=== PATIENT | female | born 1965 | race Hispanic/Latino ===

== ENCOUNTER → 2017-07-13 | Outpatient (CLI) | payer BC | END | disposition home or self-care (01) | LOC: RAH 15:41 | PROVIDERS: ATTEND Internal Medicine Nephrology | DX: Z12.31 Encounter for screening mammogram for malignant neoplasm of breast (principal) | CPT/HCPCS: 77067 ==

== ENCOUNTER → 2018-01-03 | Outpatient (CLI) | payer OTHER ==
[~2018-01-03] MED LIST: CALC600T12 PO; CEPH500B PO; CHOL500050 PO; IBUP-2070 PO; TYL3 PO; [UNRECOGNIZED DRUG - OTHER] PO
== END | disposition home or self-care (01) ==
LOC: RAH 11-09 16:19
PROVIDERS: ATTEND Physical Medicine & Rehabilitation
DX: M54.12 Radiculopathy, cervical region (principal)
CPT/HCPCS: 72052

== ENCOUNTER → 2019-03-30 | Outpatient (CLI) | payer BC | END | disposition home or self-care (01) | LOC: RAH 15:13 | PROVIDERS: ATTEND Internal Medicine Nephrology | DX: Z12.31 Encounter for screening mammogram for malignant neoplasm of breast (principal); N63.10 Unspecified lump in the right breast, unspecified quadrant | CPT/HCPCS: 77067 ==

== ENCOUNTER → 2020-09-19 | Outpatient (CLI) | payer BC, OTHER ==
[~2020-09-19] MED LIST changes: +CALC-1125 PO; -CALC600T12 PO
== END | disposition home or self-care (01) ==
LOC: SHCH 11:07
PROVIDERS: ATTEND Internal Medicine Cardiovascular Disease
DX: R94.31 Abnormal electrocardiogram [ECG] [EKG] (principal); R07.9 Chest pain, unspecified
CPT/HCPCS: 93306; 93356

== ENCOUNTER → 2020-09-25 | Outpatient (CLI) | payer BC, OTHER ==
[~2020-09-25] VITALS: Ht 172.7 cm; Wt 92.1 kg
[~2020-09-25] MED LIST changes: +REGADENOSON 0.4 MG/5 ML PF SYG IVP SCH
== END | disposition home or self-care (01) ==
LOC: SHCH 09:32
PROVIDERS: ATTEND Internal Medicine Cardiovascular Disease
DX: R94.31 Abnormal electrocardiogram [ECG] [EKG] (principal); R07.9 Chest pain, unspecified
CPT/HCPCS: 78452; 93017; 96374; A9500 ×2; J2785

== ENCOUNTER 2023-06-04 21:05 | Inpatient (IN) | payer BC, OTHER ==
[~2023-06-04] VITALS: Ht 172.7 cm; Wt 89.0 kg
[~2023-06-04 21:05] MED LIST changes: -REGADENOSON 0.4 MG/5 ML PF SYG IVP SCH
[2023-06-04] MEDS: ONDANSETRON 4MG INJ IVP ONE (21:31)
[2023-06-04] MEDS: MORPHINE 4 MG SYG IVP ONE (21:32)
[2023-06-04] MEDS: 0.9%NACL 1000ML 1,000 ML IV ONE (21:32)
[2023-06-04 21:34] LABS: BASOPHILS # (AUTO) 0.04 K/uL (0.00-0.20); BASOPHILS % (AUTO) 0.3 % (0.0-5.0); EOSINOPHILS # (AUTO) 0.01 K/uL (0.00-0.70); EOSINOPHILS % (AUTO) 0.1 % (0.0-8.0); HEMATOCRIT 37.6 % (36-48); IMMATURE GRANULOCYTE ABSOLUTE 0.02 K/uL (0-1); LYMPHOCYTES # (AUTO) 2.2 K/uL (1.0-4.8); MEAN CORPUSCULAR HEMOGLOBIN 31.8 pg (27.0-33.0); MEAN CORPUSCULAR HGB CONC 34.6 g/dL (32.0-36.0); MEAN CORPUSCULAR VOLUME 91.9 fL (79-99); MONOCYTES # (AUTO) 0.4 K/uL (0.1-1.0); MONOCYTES % (AUTO) 3.6 % (3.0-13.0); NEUTROPHILS # (AUTO) 8.9 K/uL (1.8-7.7); NEUTROPHILS % (AUTO) 76.8 % (40.0-77.0); PLATELET COUNT (AUTO) 225 K/uL (130-400); RED BLOOD CELL COUNT(AUTO) 4.09 MIL/uL (4.00-5.50); RED CELL DISTRIBUTION WIDTH 12.3 % (11.0-15.5); WHITE BLOOD COUNT (AUTO) 11.6 K/uL (4.8-10.8)
[2023-06-04 21:35] LABS: SARS-CoV-2, RNA, NAAT NEGATIVE SARS CoV-2 (NEGATIVE)
[2023-06-04 21:36] LABS: INFLUENZA TYPE A Negative For Type A (NEGATIVE); INFLUENZA TYPE B Negative For Type B (NEGATIVE)
[2023-06-04 21:40] LABS: APPEARANCE,URINE CLEAR (CLEAR); BILIRUBIN,URINE NEGATIVE (NEGATIVE); COLOR,URINE YELLOW (YELLOW); GLUCOSE, URINE (UA) NEGATIVE (NEGATIVE); KETONES,URINE 15 mg/dL (NEGATIVE); LEUKOCYTE ESTERASE ,URINE NEGATIVE Leu/uL (NEGATIVE); NITRATE,URINE NEGATIVE (NEGATIVE); PH,URINE 7.5 (5.0-8.0); PROTEIN,URINE NEGATIVE (NEGATIVE); UROBILINOGEN,URINE 0.2 mg/dL (0.2-1.0)
[2023-06-04 21:43] LABS: ADD UA MICROSCOPIC NO; OCCULT BLOOD,URINE NEGATIVE (NEGATIVE)
[2023-06-04 21:51] LABS: POTASSIUM 3.7 mmol/L (3.5-5.1)
[2023-06-04 21:56] LABS: ALBUMIN 4.2 g/dL (3.5-5.0); BILIRUBIN,TOTAL 0.6 mg/dL (0.2-1.0); TOTAL PROTEIN, SERUM 8.9 g/dL (6.0-8.3)
[2023-06-04] MEDS: ZOSYN 3.375GM +NS 50ML IVPB ONE (22:01)
[2023-06-04] MEDS: KETOROLAC 30MG VIAL (30MG/ML) IVP ONE (22:25)
[2023-06-04] MEDS ORDERED: IOHEXOL-350 75 ML VIAL IV ONE (22:29)
[2023-06-05] VITALS (24 sets, daily range): BP systolic 95–151; BP diastolic 44–87; PULSE 66–92; RESP 15–22; O2SAT 98–100
[2023-06-05] MEDS ORDERED: ACETAMINOPHEN WITH CODEINE 1 TAB TAB PO PRN ×2
[2023-06-05] MEDS ORDERED: MORPHINE 2 MG SYG IV PRN
[2023-06-05] MEDS ORDERED: ACETAMINOPHEN 325 MG TAB PO PRN ×2
[2023-06-05 00:14] LABS: INR <= 0.93 (0.85-1.15); PROTHROMBIN TIME 10.5 SEC (9.6-11.6)
[2023-06-05 00:15] LABS: PARTIAL THROMBOPLASTIN TIME 28.5 SEC (26.3-35.5)
[2023-06-05] MEDS: 0.9%NACL 1000ML 1,000 ML IV SCH (01:04)
[2023-06-05] MEDS: KETOROLAC 15MG/ML VIAL (15MG/ML) IV PRN (01:32)
[2023-06-05] MEDS: ONDANSETRON 4MG INJ IV PRN (01:32)
[2023-06-05] MEDS: KETOROLAC 15MG/ML VIAL (15MG/ML) ONE (01:44)
[2023-06-05] MEDS: ZOSYN 3.375GM+NS 50ML 50 ML IV SCH (05:19)
[2023-06-05 05:56] LABS: BASOPHILS # (AUTO) 0.05 K/uL (0.00-0.20); BASOPHILS % (AUTO) 0.4 % (0.0-5.0); HEMATOCRIT 36.9 % (36-48); IMMATURE GRANULOCYTE ABSOLUTE 0.05 K/uL (0-1); LYMPHOCYTES # (AUTO) 1.5 K/uL (1.0-4.8); LYMPHOCYTES % (AUTO) 12.2 % (21.0-51.0); MEAN CORPUSCULAR HEMOGLOBIN 32.3 pg (27.0-33.0); MEAN CORPUSCULAR HGB CONC 34.1 g/dL (32.0-36.0); MEAN CORPUSCULAR VOLUME 94.6 fL (79-99); MONOCYTES # (AUTO) 0.9 K/uL (0.1-1.0); MONOCYTES % (AUTO) 7.4 % (3.0-13.0); NEUTROPHILS # (AUTO) 9.9 K/uL (1.8-7.7); NEUTROPHILS % (AUTO) 79.6 % (40.0-77.0); PLATELET COUNT (AUTO) 168 K/uL (130-400); RED CELL DISTRIBUTION WIDTH 12.3 % (11.0-15.5); WHITE BLOOD COUNT (AUTO) 12.5 K/uL (4.8-10.8)
[2023-06-05 06:13] LABS: INR <= 0.93 (0.85-1.15); PROTHROMBIN TIME 10.9 SEC (9.6-11.6)
[2023-06-05 06:15] LABS: PARTIAL THROMBOPLASTIN TIME 29.6 SEC (26.3-35.5)
[2023-06-05 06:31] LABS: ALBUMIN 3.5 g/dL (3.5-5.0); BILIRUBIN,TOTAL 0.8 mg/dL (0.2-1.0); CREATININE 0.8 mg/dL (0.5-1.0); POTASSIUM 3.5 mmol/L (3.5-5.1); TOTAL PROTEIN, SERUM 7.6 g/dL (6.0-8.3)
[2023-06-05] MEDS ORDERED: MIDAZOLAM HCL 1 MG/ML 2ML VIAL ONE (07:45)
[2023-06-05] MEDS ORDERED: PROPOFOL 10 MG/ML 20ML VIAL IV ONE (07:45)
[2023-06-05] MEDS ORDERED: FENTANYL CITRATE PF 50 MCG/1 ML 5ML AMP IV ONE (07:46)
[2023-06-05 08:03] LABS: HEMOGLOBIN A1C 5.5 % (4.0-6.0)
[2023-06-05] MEDS ORDERED: ONDANSETRON 4MG INJ ONE (08:08)
[2023-06-05] MEDS ORDERED: KETOROLAC 30MG VIAL (30MG/ML) ONE (08:21)
[2023-06-05] MEDS: DiphenhydrAMINE HCL 50 MG/ML VIAL ONE (08:23)
[2023-06-05] MEDS ORDERED: ROCURONIUM BROMIDE 10MG/1ML 5ML VL ONE (08:37)
[2023-06-05] MEDS ORDERED: BUPIVACAINE/PF 0.5% 30ML VIAL ONE (08:44)
[2023-06-05] MEDS ORDERED: PHENYLEPHRINE HCL 10 MG/ML 1ML VIAL IV ONE (08:44)
[2023-06-05] MEDS: FAMOTIDINE 20MG VIAL IV SCH (09:00)
[2023-06-05] MEDS: BUPIVACAINE/PF 0.5% 10ML VIAL IJ ONE (09:23)
[2023-06-05] MEDS ORDERED: GLYCOPYRROLATE 0.2 MG/ML 5 ML VIAL ONE (09:26)
[2023-06-05] MEDS ORDERED: NEOSTIGMINE METHYLSULFATE 1MG/ML IV ONE (09:27)
[2023-06-05] MEDS ORDERED: ACET-2079 PO (09:42)
[2023-06-05] MEDS ORDERED: DEXAMETHASONE SOD PHOSPHATE 10MG/ML 1ML VIAL ONE (10:33)
[2023-06-05] MEDS: METOCLOPRAMIDE 10 MG/2 ML VIAL ONE (11:04)
== END 2023-06-05 19:30 | disposition home or self-care (01) | DRG 399 ==
LOC: EDH 21:05 → EDHIP 06-05 00:28 → 3BH 06-05 01:05
PROVIDERS: ADMIT Internal Medicine; ATTEND Internal Medicine
PROC: 0DTJ4ZZ Resection of Appendix, Percutaneous Endoscopic Approach (ICD-10-PCS; principal; 2023-06-05 09:00)
DX: K35.80 Unspecified acute appendicitis (principal); K38.1 Appendicular concretions; K74.60 Unspecified cirrhosis of liver; K76.0 Fatty (change of) liver, not elsewhere classified; Z90.710 Acquired absence of both cervix and uterus
CPT/HCPCS: 36415; 71045; 74177; 80053; 81003; 83036; 83605; 83690; 84484; 85025; 85610; 85730; 87040; 87635; 87804; 96365; 96375; G0378; J1100; J1200; J1885; J2250; J2270; J2371; J2405; J2543; J2704; J2710; J2765; J3010; J3490; J7030; Q9967; A4222; A4223; J0665